=== PATIENT | male | born 1995 | race Caucasian/White ===

== ENCOUNTER 2023-11-17 02:21 | Emergency (ER) | payer SELFPAY ==
[~2023-11-17] VITALS: Ht 177.8 cm; Wt 100.0 kg
[2023-11-17 02:28] VITALS: BP 148/104; PULSE 110; RESP 20; TEMP 98.8; O2SAT 100
[2023-11-17] MEDS ORDERED: IBUP-2029 MT (04:49)
[2023-11-17] MEDS: HYDROCODONE/ACETAMINOPHEN 5/325MG TABLET PO ONE (04:52)
== END 2023-11-17 05:42 | disposition home or self-care (01) ==
LOC: ER 02:21
DX: S80.11XA Contusion of right lower leg, initial encounter (principal); W18.39XA Other fall on same level, initial encounter; Y93.89 Activity, other specified; Y92.89 Other specified places as the place of occurrence of the external cause; Y99.8 Other external cause status
CPT/HCPCS: 73590; 99283